=== PATIENT | male | born 1960 | race Caucasian/White ===

== ENCOUNTER 2020-04-27 00:47 | Emergency (ER) | payer SELFPAY ==
[~2020-04-27] VITALS: Ht 170.2 cm; Wt 68.0 kg
[2020-04-27 03:35] VITALS: BP 103/67
[2020-04-27] MEDS ORDERED: IBUPROFEN 800 MG TAB PO ONE (04:45)
== END 2020-04-27 05:52 | disposition home or self-care (01) ==
LOC: ER 00:51
DX: S13.9XXA Sprain of joints and ligaments of unspecified parts of neck, initial encounter (principal); S33.5XXA Sprain of ligaments of lumbar spine, initial encounter; L03.012 Cellulitis of left finger; M62.838 Other muscle spasm; F17.210 Nicotine dependence, cigarettes, uncomplicated; F15.10 Other stimulant abuse, uncomplicated; V43.92XA Unspecified car occupant injured in collision with other type car in traffic accident, initial encounter; Y93.89 Activity, other specified; Y92.89 Other specified places as the place of occurrence of the external cause; Y99.8 Other external cause status